=== PATIENT | male | born 1955 | race Hispanic/Latino ===

== ENCOUNTER → 2021-01-07 11:53 | Outpatient (CLI) | payer OTHER, SELFPAY ==
[2021-01-07 19:28] LABS: Add Manual Diff / Slide Review NO; Basophils Absolute Auto 0 /uL (0-100); Basophils Percent Auto 0.4 % (0-2); Eosinophils Absolute Auto 100 /uL (0-450); Eosinophils Percent Auto 2.1 % (2-4); Hematocrit 44.4 % (41-53); Hemoglobin 14.5 g/dL (13.5-17.5); Lymphocytes Absolute Auto 2500 /uL (1100-4500); Lymphocytes Percent Auto 40.8 % (25-40); Mean Corpuscular HGB Conc 32.5 % (30-36); Mean Corpuscular Hemoglobin 29.9 PG (26-34); Mean Corpuscular Volume 91.8 fL (80-100); Monocytes Absolute Auto 500 /uL (0-900); Monocytes Percent Auto 8.3 % (3-14); Neutrophils Absolute Auto 3000 /uL (1500-7000); Neutrophils Percent Auto 48.4 % (50-75); Platelet Count 210 X10^3/uL (150-400); Red Blood Cell Count 4.84 X10^6/uL (4.5-5.9); Red Cell Distribution Width 14.3 % (11.6-14.8); White Blood Cell Count 6.2 X10^3/uL (4.5-11.0)
[2021-01-07 19:38] LABS: Alanine Aminotransferase 26 IU/L (<50); Albumin 3.7 g/dL (3.5-5.0); Albumin Globulin Ratio 1.4 (1.0-2.8); Alkaline Phosphatase 76 U/L (38-126); Aspartate Aminotransferase 35 IU/L (17-59); BUN Creatinine Ratio 30.8 (6-22); Bilirubin Total 0.4 mg/dL (0.2-1.3); Blood Urea Nitrogen 20 mg/dL (9-20); Calcium 9.2 mg/dL (8.4-10.2); Carbon Dioxide 32 mmol/L (22-32); Chloride 105 mmol/L (98-107); Estimated Glomerular Filt Rate > 60.0 mL/min (>60); Globulin 2.7 g/dL (1.7-4.1); Glucose 100 mg/dL (80-110); HEMOLYSIS < 15 (0-50); Potassium 4.6 mmol/L (3.4-5.1); Sodium 141 mmol/L (137-145); Total Protein 6.4 g/dL (6.3-8.2)
== END ==
PROVIDERS: PCP Family Medicine; Visit Provider Physician Assistant
DX: I10 Essential (primary) hypertension (principal); R00.1 Bradycardia, unspecified; R11.0 Nausea
CPT/HCPCS: 80053; 85025

== ENCOUNTER → 2021-01-13 12:27 | Outpatient (CLI) | payer OTHER, SELFPAY ==
--- NOTE | 2021-02-19 10:48 | P.HOLT.S_ITS ---
[employer]ations Supervisor Report Referral & Results Date Patient Seen: 01/13/21 Requesting provider: Mag Baez Indication: Dizziness Duration of monitoring (days): 14 Diary information: There were 9 patient triggered events and 9 patient diary entries The patient triggered events were associated with (within 45 seconds) sinus rhythm, PACs, PVCs including ventricular bigeminy trigeminy and SVT Patient diary events were associated with sinus rhythm, PACs, PVCs including ventricular bigeminy and SVT Data: Minimum heart rate identified was 40 beats per minute at 04:20 on 01/22/2021 Maximum sinus heart rate was 120 beats per minute at 11:58 on 01/19/2021 Maximum overall heart rate was 174 beats per minute at 09:42 on 01/15/2021 during a 5 beat run of SVT There were 729 episodes of SVT/atrial tachycardia with the fastest being the 5 beat run noted above the longest lasting 17 beats at a rate of 124 beats per minute Approximately 3.6% of identified beats were supraventricular ectopic in origin which would classify them as occasional Approximately 6.2% of identified beats were ventricular ectopic in origin which would classify them as frequent. 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 There also episodes of very brief SVT/atrial tachycardia No clear etiology for dizziness identified on this study as patient events were associated multiple dysrhythmias as above Clinical correlation suggested Note: This study was delayed at the vendors processing plant before receiving the interpreted data, resulting in delay in final report
== END ==
PROVIDERS: PCP Physician Assistant; Referring Provider Physician Assistant; Visit Provider Physician Assistant
DX: R42 Dizziness and giddiness (principal); R00.1 Bradycardia, unspecified
CPT/HCPCS: 93246; 93248

== ENCOUNTER → 2021-03-19 11:07 | Outpatient (CLI) | payer OTHER, SELFPAY ==
[2021-03-19 13:34] LABS: BUN Creatinine Ratio 23.9 (6-22); Blood Urea Nitrogen 16 mg/dL (9-20); Calcium 8.9 mg/dL (8.4-10.2); Carbon Dioxide 26 mmol/L (22-32); Chloride 107 mmol/L (98-107); Estimated Glomerular Filt Rate > 60.0 mL/min (>60); Glucose 116 mg/dL (80-110); HEMOLYSIS < 15 (0-50); Potassium 3.7 mmol/L (3.4-5.1); Sodium 140 mmol/L (137-145)
[2021-03-19 14:07] LABS: Prostate Specific Antigen 2.63 ng/mL (0.10-4.00)
== END ==
PROVIDERS: PCP Physician Assistant; Referring Provider Specialist; Visit Provider Specialist
DX: R30.0 Dysuria (principal); R35.0 Frequency of micturition; R31.9 Hematuria, unspecified; I10 Essential (primary) hypertension; R39.9 Unspecified symptoms and signs involving the genitourinary system; N52.9 Male erectile dysfunction, unspecified
CPT/HCPCS: 36415; 51798; 80048; 81002; 84153; 99214

== ENCOUNTER → 2021-04-22 11:54 | Outpatient (CLI) | payer OTHER, SELFPAY ==
[2021-04-22 20:44] LABS: BUN Creatinine Ratio 25.7 (6-22); Blood Urea Nitrogen 18 mg/dL (9-20); Carbon Dioxide 27 mmol/L (22-32); Chloride 106 mmol/L (98-107); Estimated Glomerular Filt Rate > 60.0 mL/min (>60); Glucose 103 mg/dL (80-110); HEMOLYSIS < 15 (0-50); Potassium 4.1 mmol/L (3.4-5.1); Sodium 142 mmol/L (137-145)
== END ==
PROVIDERS: PCP Physician Assistant; Referring Provider Specialist; Visit Provider Specialist
DX: Z01.812 Encounter for preprocedural laboratory examination (principal)
CPT/HCPCS: 80048

== ENCOUNTER → 2022-04-09 11:02 | Outpatient (CLI) | payer OTHER, SELFPAY ==
[2022-04-09 19:14] LABS: Add Manual Diff / Slide Review NO; Basophils Absolute Auto 0 /uL (0-100); Basophils Percent Auto 0.4 % (0-2); Eosinophils Absolute Auto 200 /uL (0-450); Eosinophils Percent Auto 2.9 % (2-4); Hemoglobin 14.4 g/dL (13.5-17.5); Lymphocytes Absolute Auto 2700 /uL (1100-4500); Lymphocytes Percent Auto 42.8 % (25-40); Mean Corpuscular HGB Conc 33.6 % (30-36); Mean Corpuscular Hemoglobin 30.3 PG (26-34); Mean Corpuscular Volume 90.4 fL (80-100); Monocytes Absolute Auto 500 /uL (0-900); Monocytes Percent Auto 8.3 % (3-14); Neutrophils Absolute Auto 2900 /uL (1500-7000); Neutrophils Percent Auto 45.6 % (50-75); Platelet Count 187 X10^3/uL (150-400); Red Blood Cell Count 4.76 X10^6/uL (4.5-5.9); Red Cell Distribution Width 14.1 % (11.6-14.8); White Blood Cell Count 6.2 X10^3/uL (4.5-11.0)
[2022-04-09 19:32] LABS: Albumin 4.1 g/dL (3.5-5.0); Chloride 105 mmol/L (98-107); HEMOLYSIS < 15 (0-50); Potassium 4.6 mmol/L (3.4-5.1); Sodium 140 mmol/L (137-145)
[2022-04-09 19:37] LABS: Hemoglobin A1C% w Est Avg Glu 5.8 % (4.0-6.0)
[2022-04-09 19:56] LABS: Prostate Specific Antigen Scrn 2.83 ng/mL (0.1-4.0)
[2022-04-09 19:57] LABS: Alanine Aminotransferase 28 IU/L (<50); Albumin Globulin Ratio 1.5 (1.0-2.8); Alkaline Phosphatase 93 U/L (38-126); Aspartate Aminotransferase 37 IU/L (17-59); BUN Creatinine Ratio 17.1 (6-22); Bilirubin Total 0.5 mg/dL (0.2-1.3); Blood Urea Nitrogen 14 mg/dL (9-20); Calcium 8.6 mg/dL (8.4-10.2); Carbon Dioxide 29 mmol/L (22-32); Cholesterol 166 mg/dL (140-199); Estimated Glomerular Filt Rate > 60 mL/min (>60); Globulin 2.8 g/dL (1.7-4.1); Glucose 92 mg/dL (80-110); HDL Cholesterol 54 mg/dL (40-60); LDL Cholesterol Calculated 100 mg/dL (<100); Total Protein 6.9 g/dL (6.3-8.2); Triglycerides 59 mg/dL (35-150)
[2022-04-09 20:03] LABS: TSH w/ Reflex to FT4 1.58 uIU/mL (0.47-4.68)
== END ==
PROVIDERS: PCP Physician Assistant; Visit Provider Physician Assistant
DX: I10 Essential (primary) hypertension (principal); R00.2 Palpitations; R39.9 Unspecified symptoms and signs involving the genitourinary system; Z13.1 Encounter for screening for diabetes mellitus; Z12.5 Encounter for screening for malignant neoplasm of prostate
CPT/HCPCS: 80053; 80061; 83036; 84443; 85025; G0103

== ENCOUNTER → 2023-04-21 11:29 | Outpatient (CLI) | payer OTHER, SELFPAY ==
[2023-04-21 19:12] LABS: Add Manual Diff / Slide Review NO; Basophils Absolute Auto 0 /uL (0-100); Basophils Percent Auto 0.2 % (0-2); Eosinophils Absolute Auto 200 /uL (0-450); Eosinophils Percent Auto 3.6 % (2-4); Hematocrit 41.6 % (41-53); Hemoglobin 14.1 g/dL (13.5-17.5); Lymphocytes Absolute Auto 2700 /uL (1100-4500); Lymphocytes Percent Auto 45.9 % (25-40); Mean Corpuscular Hemoglobin 30.7 PG (26-34); Mean Corpuscular Volume 90.3 fL (80-100); Monocytes Absolute Auto 500 /uL (0-900); Monocytes Percent Auto 7.7 % (3-14); Neutrophils Absolute Auto 2500 /uL (1500-7000); Neutrophils Percent Auto 42.6 % (50-75); Platelet Count 184 X10^3/uL (150-400); Red Blood Cell Count 4.61 X10^6/uL (4.5-5.9); Red Cell Distribution Width 13.6 % (11.6-14.8); White Blood Cell Count 5.9 X10^3/uL (4.5-11.0)
[2023-04-21 19:16] LABS: Alanine Aminotransferase 30 IU/L (<50); Albumin 3.9 g/dL (3.5-5.0); Albumin Globulin Ratio 1.3 (1.0-2.8); Alkaline Phosphatase 88 U/L (38-126); Aspartate Aminotransferase 37 IU/L (17-59); BUN Creatinine Ratio 21.6 (6-22); Bilirubin Total 0.4 mg/dL (0.2-1.3); Blood Urea Nitrogen 16 mg/dL (9-20); Carbon Dioxide 31 mmol/L (22-32); Chloride 102 mmol/L (98-107); Estimated Glomerular Filt Rate > 60 mL/min (>60); Glucose 94 mg/dL (80-110); HEMOLYSIS < 15 (0-50); Potassium 4.5 mmol/L (3.4-5.1); Sodium 140 mmol/L (137-145); Total Protein 6.9 g/dL (6.3-8.2)
[2023-04-21 19:50] LABS: Prostate Specific Antigen 3.26 ng/mL (0.10-4.00)
[2023-04-22 16:39] LABS: Hep C Virus Ab w/Reflex Quant NEGATIVE s/c (NEGATIVE)
== END ==
PROVIDERS: Specialist; PCP Physician Assistant; Visit Provider Physician Assistant
DX: R10.11 Right upper quadrant pain (principal); R31.9 Hematuria, unspecified; N13.8 Other obstructive and reflux uropathy; N40.1 Benign prostatic hyperplasia with lower urinary tract symptoms
CPT/HCPCS: 80053; 84153; 85025; 86803

== ENCOUNTER → 2023-11-29 13:20 | Outpatient (CLI) | payer OTHER, SELFPAY | PROVIDERS: PCP Physician Assistant; Visit Provider Specialist | DX: R97.20 Elevated prostate specific antigen [PSA] (principal) | CPT/HCPCS: 84153 ==

== ENCOUNTER → 2024-05-17 10:05 | Outpatient (CLI) | payer OTHER, SELFPAY ==
[2024-05-19 11:12] LABS: Fecal Immunochemical Test Negative (Negative)
== END ==
PROVIDERS: PCP Physician Assistant; Visit Provider Physician Assistant
DX: Z12.11 Encounter for screening for malignant neoplasm of colon (principal)
CPT/HCPCS: 82274

== ENCOUNTER → 2024-05-26 08:20 | Outpatient (CLI) | payer OTHER, SELFPAY ==
[2024-05-26 21:45] LABS: Hematocrit 42.6 % (41-53); Hemoglobin 14.6 g/dL (13.5-17.5); Mean Corpuscular HGB Conc 34.3 % (30-36); Mean Corpuscular Hemoglobin 30.8 PG (26-34); Platelet Count 189 X10^3/uL (150-400); Red Blood Cell Count 4.74 X10^6/uL (4.5-5.9); Red Cell Distribution Width 13.7 % (11.6-14.8); White Blood Cell Count 4.6 X10^3/uL (4.5-11.0)
[2024-05-26 21:55] LABS: Alanine Aminotransferase 25 IU/L (<50); Albumin 4.2 g/dL (3.5-5.0); Albumin Globulin Ratio 1.6 (1.0-2.8); Alkaline Phosphatase 95 U/L (38-126); Aspartate Aminotransferase 41 IU/L (17-59); BUN Creatinine Ratio 20.6 (6-22); Bilirubin Total 0.6 mg/dL (0.2-1.3); Blood Urea Nitrogen 13 mg/dL (9-20); Carbon Dioxide 26 mmol/L (22-32); Chloride 106 mmol/L (98-107); Cholesterol 171 mg/dL (140-199); Estimated Glomerular Filt Rate > 60 mL/min (>60); Globulin 2.6 g/dL (1.7-4.1); Glucose 108 mg/dL (80-110); HDL Cholesterol 49 mg/dL (40-60); HEMOLYSIS 32 (0-50); LDL Cholesterol Calculated 108 mg/dL (<100); Potassium 4.3 mmol/L (3.4-5.1); Sodium 139 mmol/L (137-145); Total Protein 6.8 g/dL (6.3-8.2); Triglycerides 69 mg/dL (35-150)
[2024-05-26 22:24] LABS: Prostate Specific Antigen Scrn 3.04 ng/mL (0.1-4.0)
== END ==
PROVIDERS: PCP Physician Assistant; Visit Provider Physician Assistant
DX: Z13.6 Encounter for screening for cardiovascular disorders (principal); Z12.5 Encounter for screening for malignant neoplasm of prostate; I10 Essential (primary) hypertension; Z79.899 Other long term (current) drug therapy
CPT/HCPCS: 80053; 80061; 85027; G0103

== ENCOUNTER → 2024-12-04 10:16 | Outpatient (CLI) | payer OTHER, SELFPAY ==
[2024-12-04 19:28] LABS: Prostate Specific Antigen Scrn 2.92 ng/mL (0.1-4.0)
== END ==
PROVIDERS: PCP Physician Assistant; Visit Provider Urology
DX: Z12.5 Encounter for screening for malignant neoplasm of prostate (principal)
CPT/HCPCS: G0103

== ENCOUNTER → 2025-06-26 09:07 | Outpatient (CLI) | payer OTHER, SELFPAY ==
[2025-06-26 19:31] LABS: Alanine Aminotransferase 37 IU/L (<50); Albumin 4.2 g/dL (3.5-5.0); Albumin Globulin Ratio 1.4 (1.0-2.8); Alkaline Phosphatase 91 U/L (38-126); Blood Urea Nitrogen 19 mg/dL (9-20); Calcium 9.3 mg/dL (8.4-10.2); Carbon Dioxide 31 mmol/L (22-32); Chloride 105 mmol/L (98-107); Cholesterol 153 mg/dL (140-199); Estimated Glomerular Filt Rate > 60 mL/min (>60); Globulin 3.0 g/dL (1.7-4.1); Glucose 108 mg/dL (70-99); HDL Cholesterol 46 mg/dL (40-60); HEMOLYSIS < 15 (0-50); Potassium 4.8 mmol/L (3.4-5.1); Sodium 142 mmol/L (137-145); Total Protein 7.2 g/dL (6.3-8.2); Triglycerides 71 mg/dL (35-150)
== END ==
PROVIDERS: PCP Physician Assistant; Visit Provider Physician Assistant Medical
DX: Z13.6 Encounter for screening for cardiovascular disorders (principal); Z68.38 Body mass index [BMI] 38.0-38.9, adult; I10 Essential (primary) hypertension
CPT/HCPCS: 80053; 80061